=== PATIENT | female | born 1935 | race Caucasian/White ===

== ENCOUNTER 2020-04-24 17:48 | Emergency (ER) | payer MEDICARE ==
[~2020-04-24] VITALS: Wt 45.4 kg
[2020-04-24 18:44] LABS: BASO % 0.4 % (0.0-1.0); EOS % 0.8 % (1.0-4.0); HEMATOCRIT 25.9 % (37.0-47.0); LYMPH # 0.7 10*3/uL (1.3-4.4); LYMPH % 15.2 % (27.0-41.0); MEAN CELL VOLUME 88.1 fl (81.0-99.0); MEAN CORPUSCULAR HGB 28.6 pg (27.0-31.0); MEAN CORPUSCULAR HGB CONC 32.4 g/dl (33.0-37.0); MEAN PLATELET VOLUME 9.9 fl (9.6-12.3); MONO # 0.5 10*3/uL (0.1-1.0); MONO % 10.7 % (3.0-9.0); NEUT # 3.5 10*3/uL (2.3-7.9); NEUT % 72.5 % (47.0-73.0); PLATELET COUNT AUTOMATED 213 10*3/uL (130-400); RED BLOOD COUNT 2.94 10*6/uL (4.10-5.10); RED CELL DISTRI WIDTH 12.9 % (0-14.5); WHITE BLOOD COUNT 4.9 10*3/uL (4.8-10.8)
[2020-04-24 19:00] LABS: ALBUMIN 3.3 gm/dl (3.1-4.5); ALKALINE PHOSPHATASE 63 U/L (45-117); BUN 32 mg/dl (7-24); CHLORIDE 108 mmol/L (98-107); CREATININE 1.65 mg/dL (0.55-1.02); POTASSIUM 4.1 mmol/L (3.5-5.1); SGOT/AST 29 IU/L (3-35); SGPT/ALT 30 U/L (12-78); SODIUM 140 mmol/L (136-145); TOTAL PROTEIN 6.7 gm/dL (6.4-8.2)
[2020-04-24 19:06] LABS: ETHYL ALCOHOL < 3.0 mg/dl (<3); TROPONIN I < 0.015 ng/ml (<0.045)
[2020-04-24 20:36] LABS: BILIRUBIN NEGATIVE; BLOOD NEGATIVE (NEGATIVE); CLARITY CLEAR (CLEAR); COLOR YELLOW (YELLOW); GLUCOSE NEGATIVE; KETONE NEGATIVE; NITRITE NEGATIVE (NEGATIVE); UROBILINOGEN 0.2 E.U./dl (0.0-1.0)
[2020-04-24 20:37] LABS: LEUKO ESTERASE 2+ (NEGATIVE)
[2020-04-24 20:39] LABS: BACTERIA 2+; RBC 0-2 rbc/hpf (0-2); WBC 16-20 wbc/hpf (0-5)
[2020-04-24 20:40] LABS: URINE AMPHETAMINES < 1000 (1000ng/ml); URINE BARBITURATES < 200 (200ng/ml); URINE BENZODIAZEPINES > 200 (200ng/ml); URINE CANNABINOIDS (THC) < 50 (50ng/ml); URINE COCAINE < 300 (300ng/ml); URINE METHADONE < 300 (300ng/ml); URINE OPIATES < 300 (300ng/ml)
[2020-04-24 20:44] LABS: URINE PHENCYCLIDINE < 25 (25ng/ml)
[2020-04-24] MEDS ORDERED: AMITRIPTYLINE50 MG PO (23:36)
[2020-04-24] MEDS ORDERED: LISINOPRIL10 M1 PO (23:36)
[2020-04-24] MEDS ORDERED: PROTONIX20 MG PO (23:37)
[2020-04-24] MEDS ORDERED: DYAZIDE 37.5-21 EACH PO (23:38)
[2020-04-24] MEDS ORDERED: ATIVAN1 MG PO (23:39)
[2020-04-24] MEDS ORDERED: TRAZODONE50 MG PO (23:40)
[2020-04-24] MEDS ORDERED: FEROSUL325 MG PO (23:40)
[2020-04-24] MEDS ORDERED: NAPROXEN CR500 MG PO (23:40)
[2020-04-24] MEDS ORDERED: LEXAPRO5 M1 PO (23:41)
[2020-04-24] MEDS ORDERED: SENNA LAX8.6 M1 PO (23:42)
[2020-04-24] MEDS ORDERED: ATIVAN0.5 MG PO (23:43)
[2020-04-25] MEDS ORDERED: LEXAPRO5 M1 PO (00:39)
[2020-04-25] MEDS ORDERED: ATIVAN1 MG PO (00:41)
[2020-04-25] MEDS ORDERED: AMITRIPTYLINE50 MG PO (00:42)
== END 2020-04-25 00:55 | disposition home health service (06) ==
LOC: ED 17:48
PROVIDERS: Emergency Medicine
DX: R44.0 Auditory hallucinations (principal); R44.2 Other hallucinations; Z72.89 Other problems related to lifestyle

== ENCOUNTER 2020-04-24 23:30 | Inpatient (IN) | payer MEDICARE ==
[~2020-04-24] VITALS: Ht 152.4 cm; Wt 51.3 kg
[2020-04-24] MEDS ORDERED: AMITRIPTYLINE50 MG PO (23:36)
[2020-04-24] MEDS ORDERED: LISINOPRIL10 M1 PO (23:36)
[2020-04-24] MEDS ORDERED: PROTONIX20 MG PO (23:37)
[2020-04-24] MEDS ORDERED: DYAZIDE 37.5-21 EACH PO (23:38)
[2020-04-24] MEDS ORDERED: ATIVAN1 MG PO (23:39)
[2020-04-24] MEDS ORDERED: NAPROXEN CR500 MG PO (23:40)
[2020-04-24] MEDS ORDERED: FEROSUL325 MG PO (23:40)
[2020-04-24] MEDS ORDERED: TRAZODONE50 MG PO (23:40)
[2020-04-24] MEDS ORDERED: LEXAPRO5 M1 PO (23:41)
[2020-04-24] MEDS ORDERED: SENNA LAX8.6 M1 PO (23:42)
[2020-04-24] MEDS ORDERED: ATIVAN0.5 MG PO (23:43)
[2020-04-25 00:37] VITALS: BP 140/66
[2020-04-25] MEDS ORDERED: LEXAPRO5 M1 PO (00:39)
[2020-04-25] MEDS ORDERED: ATIVAN1 MG PO (00:41)
[2020-04-25] MEDS ORDERED: AMITRIPTYLINE50 MG PO (00:42)
--- NOTE | 2020-04-25 01:22 | NUR ---
DR MALAGON NOTIFIED OF ADMISSION. WILL SEE IN AM.
[2020-04-25 01:35] VITALS: BP 140/66
--- NOTE | 2020-04-25 01:42 | NUR ---
JAVON MAYFIELD a 85 year old F admitted via wheel chair from the EMERGENCY ROOM as a emergency 72 hr. hold admission. Arrived on unit at 0030 AM. ALLERGIES: MORPHINE. Vital signs are: [id number] 140/66. CLIENT IS PINK SLIPPED The client signed the following forms with stated understanding: Authorization For The Release of Medical Information, Clothing List, , Consent and Release Forms/Receipt of Rights, Acknowledgement of Advance Directive Information, Behavioral Health Consent Form, and Informed Consent of Medications. Ad[facility] the services [facility]. A search was conducted and hazardous articles were removed. Client was oriented to the unit. DANIEL HERNANDEZ
--- NOTE | 2020-04-25 01:43 | NUR ---
DURING INTERVIEW CLIENT STATES THE VOICES MADE HER MISS THE PLANE TO [facility], THEY MAKE FUN OF HER AND CALL HER NAMES. SHE CONTINUALLY HEARS MUSIC IN HER HEAD BUT TRIES TO BELIEVE THAT IT IS COMING FROM THE HOUSE BECAUSE HER SISTERS COME AND STAY WITH HER OVERNIGHT SOMETIMES BECAUSE THEIR HUSBANDS HAVE PASSED. STATES THE VOICES HAVE THREATENED TO SHOOT HER IF SHE EATS ANYTHING. STATES SHE TRIED TO STAND UP TO THEM AND WENT ONTO HER PORCH TO CONFRONT THEM AND THEY WERE GONE. UNABLE TO RATIONALIZE BETWEEN HALLUCINATIONS AND REALITY. SHE VERBALIZED THAT BEING HERE IS A LONG WAY FROM HOME BUT ESME BELIEVES THE MUSIC IN HER HEAD IS FROM HER HOUSE. GRANDSON TOLD HER SHE BETTER GET SOME HELP BEFORE SOMETHING HAPPENS TO HER. HAS BEEN TOLD THAT THE WIRES IN HER HEAD HAVE EITHER BEEN CUT IN 2 OR ARE TWISTED. FLAT AFFECT OF ACCEPTENCE THAT SHE CAN'T SEE OUR WORLD OUR WAY. EMOTIONAL SUPPORT PROVIDED. WILL MONITOR FOR CHANGES IN MOOD/BEHAVIOR AND Q 15 MINS AND PRN FOR SAFETY
--- NOTE | 2020-04-25 05:00 | NUR ---
DR MALAGON HERE TO SEE CLIENT. 24 HR chart check completed.
[2020-04-25 06:20] LABS: BASO % 0.5 % (0.0-1.0); EOS # 0.2 10*3/uL (0.0-0.4); EOS % 4.1 % (1.0-4.0); HEMATOCRIT 26.8 % (37.0-47.0); LYMPH # 1.1 10*3/uL (1.3-4.4); LYMPH % 24.6 % (27.0-41.0); MEAN CELL VOLUME 88.7 fl (81.0-99.0); MEAN CORPUSCULAR HGB 28.5 pg (27.0-31.0); MEAN CORPUSCULAR HGB CONC 32.1 g/dl (33.0-37.0); MEAN PLATELET VOLUME 10.2 fl (9.6-12.3); MONO # 0.5 10*3/uL (0.1-1.0); MONO % 10.8 % (3.0-9.0); NEUT # 2.6 10*3/uL (2.3-7.9); NEUT % 59.5 % (47.0-73.0); PLATELET COUNT AUTOMATED 223 10*3/uL (130-400); RED BLOOD COUNT 3.02 10*6/uL (4.10-5.10); RED CELL DISTRI WIDTH 13.2 % (0-14.5); WHITE BLOOD COUNT 4.4 10*3/uL (4.8-10.8)
--- NOTE | 2020-04-25 06:36 | NUR ---
INCREASED CONFUSION AND HALLUCINATIONS. ROCKING IN BED SAYING GOD HAS TOLD HER WHAT TO SAY, BUT SHE KNOWS THAT HER FRIEND CINDY IS PUTTING MORPHINE IN ALL THE MEDICATIONS SO SHE IS NOT GOING TO TAKE ANY MEDICATIONS. WHEN I SAID THAT WAS HER RIGHT BUT THAT MEDICATIONS ARE SAFE AND NO ONE CAN POISON THEM OR ADD MORPHINE, SHE ROLLED HER EYES AND SAID OH HOW THE ATTITUDES HAVE CHANGED, YOU WILL SEE WHEN THEY COME AND SHOOT ME. UNABLE TO REDIRECT TO REALITY. WILL CONTINUE TO MONITOR
[2020-04-25 06:37] LABS: CREATININE 1.44 mg/dL (0.55-1.02); POTASSIUM 3.9 mmol/L (3.5-5.1); TOTAL PROTEIN 6.5 gm/dL (6.4-8.2)
[2020-04-25 06:45] LABS: THYROID STIM HORMONE (HS) 2.99 uIU/ml (0.358-4.75)
[2020-04-25 07:46] VITALS: BP 124/88
[2020-04-25 08:04] LABS: VITAMIN D, 25-HYDROXY 33.4 ng/mL (30-100)
--- NOTE | 2020-04-25 09:00 | NUR ---
Treatment Plan meeting was held this a.m. with RUSSEL Lester, RN, AT, SEJAL-S and Sterile Supply Technician. Plan for discharge Next Week. Pt. will return home at discharge.
--- NOTE | 2020-04-25 09:39 | NUR ---
P: DEPRESSED MOOD, FEELINGS OF HOPELESSNESS/HELPLESSNESS. AUDITORY HALLUCINATIONS, PARANOIA. I: ONE ON ONE, SPACE PROVIDED NEEDED. R: EFFECTIVE. PATIENT IS ALERT TO PERSON, PLACE, TIME AND SITUATION; ABLE TO VOICE NEEDS. MOOD IS DEPRESSED. PATIENT IS PREOCCUPIED WITH THOUGHTS OF HER DOG RUNNING AWAY. DENIES SUICIDAL IDEATION, DENIES HOMICIDAL IDEATION. PATIENT IS TERAFUL. EXPERIENCING AUDITORY HALLUCINATIONS "THEY SAID THEY ARE GOING TO TAKE ME TO A ROOM AND WATCH ME AND I'M BRUTAL AND DANGEROUS". PATIENT IS EXPERIENCING PARANOIA, SHE BELIEVES PEOPLE ARE TALKING ABOUT HER AND CALLING HER "CRAZY" AND BELIEVES THAT PEOPLE ARE GIVING HER MORPHINE. MEDICATION COMPLIANT WITH EDUCATION. Q 15 MINUTE SAFETY CHECKS MAINTAINED. INDEPENDENT WITH ACTIVITIES OF DAILY LIVING, CONTINENT OF BOWEL AND BLADDER. SET UP FOR MEALS. AMBULATORY WITH STEADY GAIT. RESTLESS AT THIS TIME. INTAKES ARE INADEQUATE WITH ADEQUATE FLUIDS. REFUSED TO ATTEND GROUP THIS MORNING. P: CONTINUE TO MONITOR FOR MOOD, HALLUCINATIONS AND DELUSIONS. PROVIDE ONE ON ONE FOR EMOTIONAL SUPPORT, PROVIDE SPACE NEEDED, ENCOURAGE TO PARTICIPATE IN GROUP SESSION AND SOCIALIZE WITH OTHERS.
--- NOTE | 2020-04-25 10:20 | NUR ---
Occupational Therapy evaluation completed on three with full evaluation to follow. Recommend occupational therapy per plan of care and home with increased family assist with HH upon discharge. Thank you for this referral. Zaina Sotomayor OTR/L
--- NOTE | 2020-04-25 11:10 | NUR ---
DR DALEY ON UNIT TO ASSESS PT, UPDATE PROVIDED.
--- NOTE | 2020-04-25 11:28 | NUR ---
PHYSICAL THERAPY Physical Therapy evaluation completed in [facility] with full evaluation to follow. Recommend physical therapy per plan of care and home w family support as needed upon discharge. Thank you for this referral. Loy Grijalva SPT Marixa Gonzalez PT
--- NOTE | 2020-04-25 11:43 | NUR ---
AM GROUP PT WAS AMBULATING THE HALLWAY AT THE START OF GROUP AND APPEARED DISTURBED. PT WAS GREETED AND ASKED IF EVERYTHING WAS OKAY? PT STATED, "NO, I EVERYTIME I GO TO MY ROOM I HEAR THEM TALKING ABOUT ME. THEY SAY THAT I A DANGEROUS AND VISCIOUS. I AM NOT A BAD PERSON!" PT WAS DISTRACTED WITH QUESTIONS ABOUT HER LIFE AND ENCOURAGED TO ATTEND GROUP THERAPY. PT DECLINED AND STATED, "NO, I JUST WANT TO LAY DOWN. I SHOULDN'T BE HERE, THEY ARE LYING ABOUT ME, I'M NOT A BAD PERSON AND I'M NOT CRAZY." "I REALLY MISS MY DOG GERALDINE, I NEED TO GET HOME TO HIM." PT RETURNED TO HER ROOM AND WAS LATER OBSERVED TO BE LOOKING THROUGH THE CLEAN ROOM WINDOW. I WAS RETRIEVING WARM BLANKET FOR PEERS AND ASKED PT WHAT SHE WAS DOING? PT STATED, "THEY ARE TALKING ABOUT ME, I CAN HEAR THEM, THEY ARE SAYING BAD THINGS ABOUT ME" PT WAS REFERING TO THE VICE PRESIDENT BUSINESS DEVELOPMENT AND FLOAT NURSE WHO WERE IN THE CLEAN ROOM TALKING. I OPENED THE DOOR FOR THE PT, ASSURRED HER DID THE NURSE AND VICE PRESIDENT BUSINESS DEVELOPMENT THAT THEY WERE NOT TALKING ABOUT HER AND OFFERED PT A WARM BLANKET WHICH SHE ACCEPTED. PT WAS AGAIN ENCOURAGED TO ATTEND GROUP THERAPY BUT DECLINED AND RETURNED TO HER ROOM.
--- NOTE | 2020-04-25 12:16 | NUR ---
Left voicemail messages for pt's daughter Dorota Spear requesting a return call.
--- NOTE | 2020-04-25 14:08 | NUR ---
Pt came to nurse's station asking when she would be seeing the doctor. Encouraged pt to attend group activity or to sit in activity room with others. Pt voiced that she did not want to do that. Pt did continue to stand near nurse's station and reminisce about her and their marriage of 67 years to this underwriter solicitation director. Pt was pleasant with no delusions or paranoia being voiced. Pt then returned to her room.
--- NOTE | 2020-04-25 14:10 | NUR ---
Spoke to [facility] precert line. Pending auth # [id number]. Awaiting clinical call from insurance case manager at [facility].
--- NOTE | 2020-04-25 15:09 | NUR ---
IP 7 days ethan per Dieter at [facility]. LCD and NRD 04/30. Ref # [id number]. CCR will be with [facility] [phone].
--- NOTE | 2020-04-25 15:43 | NUR ---
PM GROUP/LEISURE INTERESTS PT DID NOT ATTEND AFTERNOON GROUP THERAPY. PT CHOSE TO STAY IN BED AND NAP.
[2020-04-25 20:00] VITALS: BP 139/62
--- NOTE | 2020-04-25 23:59 | NUR ---
P-ISOLATIVE, WITHDRAWN I-REDIRECTION WITH 1:1 THERAPEUTIC INTERVENTIONS AND PRESENT REALITY. EDUCATE AND ENCOURAGE MEDICATION COMPLIANCE R-PATIENT MEDICATION COMPLIANT AT HS. PATIENT REFUSED NOURISHMENT AT HS BUT PROVIDED FLUIDS. PATIENT ISOLATIVE IN ROOM THROUGHOUT SHIFT. PATIENT COOPERATIVE WITH NURSING STAFF. PATIENT WITH NO HALLUCINATIONS OR DELUSIONS. PATIENT WITH NO HOMICIDAL OR SUICIDAL IDEATIONS. P-CONTINUE TO ENCOURAGE MEDICATION COMPLIANCE, CONTINUE TO PRESENT REALITY, ENCOURAGE GROUP THERAPY WHILE AWAKE
--- NOTE | 2020-04-26 06:19 | NUR ---
PATIENT SLEPT 8 HOURS OF UNINTERRUPTED SLEEP THROUGHOUT SHIFT. Q 15 MINUTE CHECKS MAINTAINED. 24 HR chart check completed.
[2020-04-26 07:25] VITALS: BP 139/73
--- NOTE | 2020-04-26 15:00 | NUR ---
P: PATIENT IS TEARFUL, COMPLAINING OF NIGHTMARES, AND EXPERIENCING AUDITORY HALLUCINATIONS. I: ONE ON ONE, SPACE PROVIDED. R: EFFECTIVE. PATIENT IS ALERT TO PERSON AND TIME. PATIENT IS ABLE TO VOICE NEEDS. PATIENT IS ANXIOUS AND DEPRESSED. PATIENT IS CONFUSED UPON WAKING FROM A NAP, SHE IS STATING SHE IS "NOT SURE WHERE SHE IS". PATIENT IS PREOCCUPIED WITH THE NIGHTMARES SHE STATES SHE HAS BEEN HAVING, SHE STATES "I HAD A BAD DREAM BETWEEN THE DEVIL AND THE ANGELS AND MY SISTERS WHERE THERE". PATIENT ALSO STATES THAT "MY DAUGHTER FOUND ME ON THE FLOOR AND WHEN SHE ASKED ME WHY IM ON THE FLOOR AND WHAT HAPPENED, I TOLD HER I JUST GOT BACK FROM [facility]." PATIENT IS EXTREMELY TEARFUL, AND WAS SO UPSET THAT SHE REFUSED HER BREAKFAST. PATIENT IS ALSO RESPONDING TO INTERNAL STIMULI, SHE IS TALKING TO HERSELF. PATIENT DENIES SUICIDAL AND HOMICIDAL IDEATION. MEDICATION COMPLIANT WITH EDUCATION. Q 15 MINUTE SAFETY CHECKS MAINTAINED. INDEPENDENT WITH ACTIVITIES OF DAILY LIVING, CONTINENT OF BOWEL AND BLADDER. LAST BM 04/25. SET UP FOR MEALS. INTAKES ARE FAIR WITH ADEQUATE FLUID INTAKE. AMBULATORY WITH STEADY GAIT. PATIENT IS ISOLATIVE AND WITHDRAWN. P: CONTINUE TO MONITOR FOR HALLUCINATIONS, DELUSIONS, BEHAVIORS AND MOOD. PROVIDE ONE ON ONE FOR EMOTIONAL SUPPORT, PROVIDE SPACE NEEDED AND ENCOURAGE PATIENT TO SOCIALIZE WITH OTHERS.
--- NOTE | 2020-04-26 16:50 | NUR ---
THIS NURSE WENT TO LET PATIENT KNOW DINNER WAS HERE AND FOUND PATIENT SITTING IN A CHAIR IN HER ROOM WITH HER HANDS ON HER FACE LOOKING EXTREMELY NERVOUS. WHEN THIS NURSE ASKED HER WHAT WAS WRONG THE PATIENT REPLIED WITH "I HAVE TO BE IN COURT AT 6 TONIGHT IN [place]" THIS NURSE TRIED TO GET PATIENT TO ELABORATE ON WHY SHE THOUGHT SHE HAD COURT, BUT I NEVER GOT AN ACTUAL ANSWER, SHE WAS JUST VERY ADAMANT THAT SHE WAS DUE IN COURT. THIS NURSE REASSURED PATIENT SHE WAS EXACTLY WHERE SHE WAS SUPPOSED TO BE AND WAS NOT DUE IN COURT TONIGHT IN [place].
[2020-04-26 20:00] VITALS: BP 131/84
[2020-04-26 20:21] VITALS: BP 131/84
--- NOTE | 2020-04-27 01:13 | NUR ---
P-ISOLATIVE, WITHDRAWN I-REDIRECTION WITH 1:1 THERAPEUTIC INTERVENTIONS AND PRESENT REALITY. EDUCATE AND ENCOURAGE MEDICATION COMPLIANCE R-PATIENT MEDICATION COMPLIANT AT HS. PATIENT PROVIDED NOURISHMENT AND FLUIDS AT HS. PATIENT ISOLATIVE IN ROOM THROUGHOUT SHIFT. PATIENT COOPERATIVE WITH NURSING STAFF. PATIENT STATING "I HAD A DREAM LAST NIGHT AND IT WAS ABOUT HEAVEN". THIS NURSE ASKED PATIENT IF SHE HAD ANY NIGHTMARES. PATIENT STATING "NO, JUST A DREAM ABOUT HEAVEN". PATIENT WITH NO HALLUCINATIONS OR DELUSIONS. PATIENT WITH NO HOMICIDAL OR SUICIDAL IDEATIONS. P-CONTINUE TO ENCOURAGE MEDICATION COMPLIANCE, CONTINUE TO PRESENT REALITY, ENCOURAGE GROUP THERAPY WHILE AWAKE
--- NOTE | 2020-04-27 06:32 | NUR ---
PATIENT SLEPT 8 HOURS OF UNINTERRUPTED SLEEP THROUGHOUT SHIFT. Q 15 MINUTE CHECKS MAINTAINED. 24 HR chart check completed.
[2020-04-27 07:22] VITALS: BP 111/82
--- NOTE | 2020-04-27 08:53 | NUR ---
PATIENT GOT UP FOR BREAKFAST AND WAS VERY TEARFUL, THIS NURSE ASKED WHAT WAS THE MATTER AND PATIENT STATED "I HAD A GOOD DREAM, IM GOING HOME TO [facility]" THEN PROCEEDED TO SAY "THE CHARGES ARE DROPPED AND I AM BEING TAKEN TO THE FOURTH FLOOR WHERE NO ONE KNOWS ME AND THEN THEY ARE TAKING ME TO [facility]" WHEN I ASKED PATIENT WHAT CHARGES SHE HAD AGAINST HER SHE STATED "IT WAS FOR SOMETHING ON FACEBOOK" PATIENT ALSO BELIEVES THAT SHE IS BEING GIVEN MORPHINE. THIS NURSE REASSURED AND REORIENTED PATIENT.
--- NOTE | 2020-04-27 11:00 | NUR ---
DR AYOUB ON UNIT TO ASSESS PATIENT, UPDATE PROVIDED.
--- NOTE | 2020-04-27 14:19 | NUR ---
PT IS ALERT AND ORIENTED X3 WITH CONFUSION NOTED AT TIMES. STABLE MOOD TODAY; HOWEVER, PT STARTED HER MORNING OUT TEARFUL WITH THE DR. INTERACTIVE AND CALM WITH STAFF. DENIES HALLUCINATIONS AND DELUSIONS. DENIES SI/HI. MEDICATION COMPLIANT WITHOUT DIFFICULTIES. MEDICATION EDUCATION PROVIDED AND PT VERBALIZED UNDERSTANDING. 1:1 PROVIDED FOR THERAPEUTIC COMMUNICATION. BEHAVIORS MONITORED WITH Q15 MINUTE SAFETY CHECKS. WILL CONTINUE TO PROVIDE 1:1 AND MONITOR BEHAVIORS.
--- NOTE | 2020-04-27 14:47 | NUR ---
DR AYOUB ON THE UNIT TO ASSESS PT.
[2020-04-27 20:00] VITALS: BP 134/57
--- NOTE | 2020-04-27 23:05 | NUR ---
P-ISOLATIVE, WITHDRAWN, CONFUSION I-REDIRECTION WITH 1:1 THERAPEUTIC INTERVENTIONS AND PRESENT REALITY. EDUCATE AND ENCOURAGE MEDICATION COMPLIANCE R-PATIENT MEDICATION COMPLIANT AT HS. PATIENT REFUSED NOURISHMENT AT HS BUT WAS PROVIDED FLUIDS AT HS. PATIENT ISOLATIVE IN ROOM THROUGHOUT SHIFT. PATIENT COOPERATIVE WITH NURSING STAFF. PATIENT STATING "I THINK I'M SUPPOSE TO LEAVE TOMORROW AT 8AM TO GO TO [facility]". THIS NURSE EXPLAINED TO PATIENT THAT TRANSPORTATION HAS NOT BEEN SET UP FOR DISCHARGE AND THAT THIS NURSE WAS NOT AWARE OF PATIENT BEING DISCHARGED IN THE AM. PATIENT THANKED THIS NURSE AND WENT INTO THE DINING AREA. PATIENT WITH NO HALLUCINATIONS OR DELUSIONS. PATIENT WITH NO HOMICIDAL OR SUICIDAL IDEATIONS. P-CONTINUE TO ENCOURAGE MEDICATION COMPLIANCE, CONTINUE TO PRESENT REALITY, ENCOURAGE GROUP THERAPY WHILE AWAKE
--- NOTE | 2020-04-28 06:39 | NUR ---
PATIENT SLEPT 8 HOURS OF UNINTERRUPTED SLEEP THROUGHOUT SHIFT. Q 15 MINUTE CHECKS MAINTAINED. 24 HR chart check completed.
[2020-04-28 06:44] VITALS: BP 129/56
--- NOTE | 2020-04-28 09:11 | NUR ---
PATIENT LAYING IN BED CRYING, CHANTING "GOD IS COMING" AND "I WANT TO GO HOME" PATIENT STATES SHE WAS IN [place] AND AT [facility] HOU[facility], ALSO SAID "I CROSSED THE BRIDGE AND CLIMBED 120 STEPS TO GO INTO [facility] AND EVERYONE WAS THERE CHEERING ME ON, MY MOM, MY DAD, MY FAMILY, AND CELESTINO AND I DIDN'T SEE GRAYSON BUT I DID HEAR HIM TELL ME I WILL SEE HIM LATER AND GOD ALSO TOLD ME I WILL SEE HIME LATER". PATIENT WAS VERY UPSET, SHE WAS VERY EMOTIONAL AND WANTS TO GO TO [facility] TO SEE ALL OF HER LOVED ONES. WILL CONTINUE TO MONITOR PATIENT.
[2020-04-28 09:30] LABS: BASO % 0.5 % (0.0-1.0); EOS # 0.2 10*3/uL (0.0-0.4); EOS % 2.3 % (1.0-4.0); HEMATOCRIT 28.8 % (37.0-47.0); LYMPH # 1.2 10*3/uL (1.3-4.4); LYMPH % 18.1 % (27.0-41.0); MEAN CELL VOLUME 88.1 fl (81.0-99.0); MEAN CORPUSCULAR HGB 28.4 pg (27.0-31.0); MEAN CORPUSCULAR HGB CONC 32.3 g/dl (33.0-37.0); MEAN PLATELET VOLUME 9.8 fl (9.6-12.3); MONO # 0.5 10*3/uL (0.1-1.0); MONO % 8.4 % (3.0-9.0); NEUT # 4.5 10*3/uL (2.3-7.9); NEUT % 70.2 % (47.0-73.0); PLATELET COUNT AUTOMATED 283 10*3/uL (130-400); RED BLOOD COUNT 3.27 10*6/uL (4.10-5.10); RED CELL DISTRI WIDTH 13.2 % (0-14.5); WHITE BLOOD COUNT 6.4 10*3/uL (4.8-10.8)
[2020-04-28 09:50] LABS: ALBUMIN 3.1 gm/dl (3.1-4.5); CREATININE 1.35 mg/dL (0.55-1.02); TOTAL PROTEIN 6.7 gm/dL (6.4-8.2)
--- NOTE | 2020-04-28 11:10 | NUR ---
DR AYOUB ON UNIT TO ASSESS PATIENT, UPDATE GIVEN.
--- NOTE | 2020-04-28 12:38 | NUR ---
P: PATIENT IS ANXIOUS, DEPRESSED, PREOCCUPIED, ISOLATIVE/WITHDRAWN. I: ONE ON ONE, SPACE PROVIDED NEEDED. R: EFFECTIVE. PATIENT IS ALERT TO PERSON, PLACE, TIME AND SITUATION. PATIENT IS ABLE TO VOICE NEEDS. MOOD IS ANXIOUS AND DEPRESSED. PATIENT TALKS A LOT ABOUT HER WHO IN AUGUST. PATIENT IS TEARFUL. PATIENT DENIES SUICIDAL AND HOMICIDAL IDEATION. PATIENT IS PREOCCUPIED WITH THE THOUGHTS OF HEARING HER LATE HUSBANDS MUSIC, SHE SAID THAT HE PLAYED THE GUITAR AND SHE VIVIDLY HEARS IT. PATIENT IS ISOLATIVE AND WITHDRAWN. PATIENT STATES SHE IS AWARE OF THE ROUGH MORNINGS SHE HAS ALONG WITH THE DREAMS SHE HAS ABOUT HEAVEN. MEDICATION COMPLIANT WITH EDUCATION. Q 15 MINUTE SAFETY CHECK MAINTAINED. INDEPENDENT WITH ACTIVITIES OF DAILY LIVING. CONTINENT OF BOWEL AND BLADDER. SET UP FOR MEALS, PATIENT DID NOT GET UP FOR BREAKFAST THIS MORNING. INTAKES ARE FAIR WITH ADEQUATE FLUIDS. AMBULATORY WITH STEADY GAIT. P: CONTINUE TO MONITOR FOR HALLUCINATIONS AND MOOD. PROVIDED ONE ON ONE FOR EMOTIONCAL SUPPORT, PROVIDE SPACE NEEDED, ENCOURAGE TO PARTICIPATE IN GROUP SESSION AND SOCIALIZE WITH OTHERS.
[2020-04-28 19:43] VITALS: BP 119/52
--- NOTE | 2020-04-28 20:30 | NUR ---
ISOLATIVE TO RICHARD EXCEPT FOR SNACK. TALKED ON PHONE. INFORMED NURSE SHE HAD A BAD NIGHT AND DAY AND STILL FEELS ANXIOUS SO SHE HOLDS ONTO THE RAILS TO WALK. STATES "I AM WALKING PRETTY GOOD". NOT VERBALIZING WHAT ACTUALLY HAPPENED LAST NIGHT BUT EMOTIONAL SUPPORT FOR TONIGHT TO BE A BETTER NIGHT. MEDICATION COMPLIANT AFTER REVIEWING THEM. WILL MONITOR FOR CHANGES IN BEHAVIOR/MOOD AND Q 15 MINS AND PRN FOR SAFETY
--- NOTE | 2020-04-28 21:38 | NUR ---
REPEAT URINE SENT PER ORDERS
[2020-04-28 21:47] LABS: BILIRUBIN NEGATIVE; BLOOD NEGATIVE (NEGATIVE); CLARITY CLEAR (CLEAR); COLOR YELLOW (YELLOW); GLUCOSE NEGATIVE; KETONE NEGATIVE
[2020-04-28 21:48] LABS: LEUKO ESTERASE 1+ (NEGATIVE); NITRITE NEGATIVE (NEGATIVE); PH 5.5 (4.5-8.0); UROBILINOGEN 0.2 E.U./dl (0.0-1.0)
[2020-04-28 21:51] LABS: BACTERIA TRACE; EPITHELIAL CELLS 0-2; WBC 21-30 wbc/hpf (0-5)
--- NOTE | 2020-04-29 02:23 | NUR ---
24 HR chart check completed.
--- NOTE | 2020-04-29 06:17 | NUR ---
SLEPT WELL PAST 2245PM
--- NOTE | 2020-04-29 07:30 | NUR ---
PHYSICAL THERAPY Patient seen this am for therapy visit and was just awakening supine in bed upon therapist arrival. Patient identified by name / and was joined by OT executive administrative assistant for observation this session. Patient reports no new c/o's at this time and transfers supine to sit EOB with CGA x 1. Patient completed sit to stand SBA and ambulated ad arnaud in hallway, 50'x 1 to window, no AD, SBA, taking a brief standing rest break to look out window. Patient also completed standing eyes open / closed balance ex and performed several 180 degree turns each direction, SBA, demonstratng no LOB during each ex. Patient ambulated additional 130'x 1, SBA, demonstrating slow, cautious gait pattern, however did have one mild "drifting" episode to L side upon return to activity room chair at table. Patient appeared to demonstrate decreased focus on task during drifting episode and remained in chair at table awaiting breakfast, under [facility] staff Supervision. Will continue per POC as tolerated, total treatment time 18 minutes. Eulogio Foreman, FACILITY ASSISTANT
--- NOTE | 2020-04-29 07:35 | NUR ---
OT NOTE Prior to arriving therapy notified U and talked to nurse gilliland for permission to treat Pt. Pt laying supine in bed agreeable to 10 minute OT session. Identified by name and date of with no complaints to date. Transfer SUPINE to EOB SBA. Pt was able to bend at waist at EOB to fix hospital socks. balance good-. Sit-stand from elevated bed CGA for safety. Functional mobility from EOB to bathroom CGA for saftey. Transferring on and off commode CGA with use of grab bar. Functional mobility from bathroom to hallway window CGA for saftey. Pt was able to maintain good- while standing unsupported at window. Functional mobility from hallway to dining romero CGA for safety. While walking pt became upset and began to cry stating "i wanna go home" pt was easily redirected. Functional mobility to dining romero table CGA, however pt became unsteady due to decreased focus requiring Robbie to correct. Pt left in dining romero at table with U aide present. Continue d/c recommended home. AFSHAN Hauser/LAKE Marte/Shelby
[2020-04-29 08:00] VITALS: BP 116/55
--- NOTE | 2020-04-29 08:30 | NUR ---
Treatment Plan meeting was held this a.m. with Dr. Cox via telephone, RUSSEL Lester RN, AT and Data Base Design Analyst in attendance. Pt. will return home at discharge. Plan for discharge at the end of the week.
--- NOTE | 2020-04-29 11:22 | NUR ---
DR AYOUB ON UNIT TO ASSESS PATIENT, UPDATE PROVIDED.
--- NOTE | 2020-04-29 11:58 | NUR ---
AM GROUP PT WAS SEATED IN A CHAIR IN HER ROOM AND WAS ENCOURAGED TO ATTEND MORNING GROUP THERAPY. PT STATED THAT SHE WAS FINE, DIDN'T NEED ANYTHING AND DID NOT WANT TO ATTEND. PT DID NOT ATTEND MORNING GROUP BUT DID COME IN FOR LUNCH.
--- NOTE | 2020-04-29 15:46 | NUR ---
PM GROUP PT DID NOT ATTEND AFTERNOON GROUP THERAPY. PT WAS IN BED NAPPING.
[2020-04-29 19:37] VITALS: BP 133/77
--- NOTE | 2020-04-29 21:06 | NUR ---
SPOKE WITH SON AND JENI WHO HAD JUST GOTTON OFF PHONE WITH CLIENT. SHE TOLD THEM SHE HAD COVID AND WAS BEING ISOLATED. REASSURED THEM THIS IS NOT TRUE IN FACT HER URINE CAME BACK CLEAN AND THE ONLY ISOLATION WAS WHAT SHE PUTS HERSELF IN. REINFORCED WE TRY CONTINUALLY TO GET HER OUT OF HER ROOM BUT SHE MAINLY ONLY COMES OUT FOR MEALS. DIL STATES CLIENT SOUNDED DEPRESSED BUT WAS TALKING ABOUT MONEY IN HER ACCOUNT TO PAY HER BILLS. ALL QUESTIONS ANSWERED AND EMOTIONAL SUPPORT PROVIDED I THEN WENT TO CLIENTS ROOM AND REASSURED HER THAT SHE DOES NOT HAVE COVID AND SHE CAN COME AND PARTICIPATE IN GROUPS AND WATCH TV. CLIENT CLAPPED HANDS AND SAID OH GOOD. FINISHED TAKING HER MEDICATIONS, PM CARE DONE AND WENT TO BED.
--- NOTE | 2020-04-29 22:00 | NUR ---
REMAINS ON BACK. REFUSES TURN ASSISTANCE OR TO TURN. STATES SHE LIKES ON HER BACK. ENCOURAGED AT LEAST SMALL CHANGES. VERBALIZED UNDERSTANDING
--- NOTE | 2020-04-30 02:43 | NUR ---
24 HR chart check completed.
--- NOTE | 2020-04-30 05:45 | NUR ---
SLEPT GOOD PAST 2245PM. UP A COUPLE TIMES TO GO TO BATHROOM
--- NOTE | 2020-04-30 07:20 | NUR ---
PHYSICAL THERAPY Patient seen this am for therapy visit and was sitting in bedroom chair with OT assistant director of plant operations present upon therapist arrival. Patient identified by name / and was very pleasant this morning, voicing no new c/o's. Patient was Independent this session with all transfers and ambulates without AD, ad arnaud in hallway, 100'x 2, Supervision. Patient tolerated only 1 second single leg stance each side prior to LOB and able to change gait velocity upon command without LOB. Patient returned to activity room chair and remained under [facility] staff Supervision awaiting breakfast. Will continue per POC as tolerated, total treatment time 18 minutes. Eulogio Foreman, PIECE GOODS CLERK
--- NOTE | 2020-04-30 07:30 | NUR ---
OT NOTE Upon arrival therapist called [facility] and talked to nurse Redman to get permission to treat pt. Pt was up in bathroom standing at sink brushing hair. Pt was agreeable to 12 minute OT session. Identified by name and date of with no complaints to date. While standing at sink side pt was unsupported with good- standing balance. Functional mobility from bathroom to standard chair CGA. Pt was able to dileep hospital socks while seated in chair with SBA. Functional mobility from room to hallway window CGA. while standing at window pt had good- standing balance unsupported. Hallway to chair in dining romero CGA with occasional Robbie due to bouts of unsteady stance . Pt performed BUE exercises with towel in chair at moderate resistance all planes X10. Pt was left in dining romero with [facility] aide present. Continue d/c recommended home. AFSHAN Hauser/LAKE Marte/Shelby
[2020-04-30 07:31] VITALS: BP 117/56
--- NOTE | 2020-04-30 08:30 | NUR ---
Treatment Plan meeting was held this a.m. with Dr. Cox via telephone, RUSSEL Lester, RN, AT, CROSSTIE INSPECTOR-S and Laminator Hand. Plan for discharge Tuesday. Pt. will return home at discharge.
--- NOTE | 2020-04-30 09:57 | NUR ---
DR. SPICER ON UNIT TO ASSESS PATIENT.
--- NOTE | 2020-04-30 11:14 | NUR ---
AM GROUP PT DID NOT ATTEND MORNING GROUP THERAPY. PT WAS IN BED RESTING.
--- NOTE | 2020-04-30 12:46 | NUR ---
P: ISOLATIVE TO ROOM, ALERT SITTING IN CHAIR. DEPRESSED MOOD I: ONE ON ONE, REDIRECTION/ORIENTATION, AND ENCOURAGED PATIENT TO ATTEND GROUP AND INTERACTIVE WITH STAFF AND OTHER PATIENTS. R: INEFFECTIVE. PATEINT INTERACTIVE WITH STAFF, DID NOT PARTICIPATE IN GROUP SESSION. COMES TO DINING ROOM FOR MEALS AND TALKS WITH OTHER FEMALE PATIENT. PATIENT IS ALERT TO PERSON, PLACE, TIME AND SITUATION WITH INTERMITTANT CONFUSION. MOOD IS DEPRESSED. DENIES ANY HALLUCINATIONS, DELUSIONS, HI/SI OR PAIN. MEDICATION COMPLIANT WITH EDUCATION PROVIDED. Q 15 MINUTE SAFETY CHECKS. AMBULATORY WITH STEADY GAIT. PARTICIPATES IN THERAPY SESSION THIS MORNING. SET UP WITH ACTIVITIES OF DAILY LIVING, CONTINENT OF BOWEL AND BLADDER. SET UP FOR MEALS, INTAKES ARE GOOD WITH ADEQUATE FLUIDS. P: CONTINUE TO MONITOR FOR HALLUCINATIONS, HEARING MUSIC OR VOICED THOUGHTS TO STARVE SELF. PROVIDE ONE ON ONE FOR EMOTIONAL SUPPORT, REDIRECTION/ORIENTATION PROVIDED.
--- NOTE | 2020-04-30 13:28 | NUR ---
IP 2 additional days approved per Ana Maria at [facility], LCD/NRD 05/02. Ref # [id number]
--- NOTE | 2020-04-30 15:31 | NUR ---
Shift chart check completed.
--- NOTE | 2020-04-30 19:35 | NUR ---
PATIENT ALERT AND ORIENTED X4, CONSENT FOR VOLUNTARY ADMISSION AND HOSPITALIZATION FORMED SIGNED AT THIS TIME WITH VERBAL UNDERSTANDING.
[2020-04-30 19:48] VITALS: BP 150/59
[2020-04-30 20:00] VITALS: BP 134/66
--- NOTE | 2020-04-30 23:40 | NUR ---
PATIENT WITH NO ADVERSE BEHAVIORS. ALERT AND ORIENTED X4, CALM, COOPERATIVE, AND PLEASANT. PT ISOLATIVE TO ROOM AND BED SINCE BEGINNING OF SHIFT, ONLY COMING DOWN TO DINING ROOM FOR SNACK. PT MEDICATION COMPLIANT WITHOUT DIFFICULTY AFTER REVIEW. PT DENIES SI/HI, HALLUCINATIONS, OR PAIN. NO PARANOIA/DELUSIONS NOTED. PT AMBULATORY WITH A STEADY GAIT, INDEPENDENT IN ADLS, CONTINENT OF BOWEL AND BLADDER. NO DISTRESS NOTED. PLAN IS TO CONTINUE OT MONITOR MOOD AND BEHAVIOR, MAINTAIN Q 15 MIN CHECKS AND PRN FOR SAFETY.
--- NOTE | 2020-05-01 06:31 | NUR ---
PATIENT SLEPT APPROX 5 HOURS INTERRUPTED THIS SHIFT. PARANOID THOUGHT PROCESS NOTED THIS AM, BELIEVES STAFF IS GIVING ALL THE PATIENTS MORPHINE. PT EASILY REORIENTED/REDIRECTED WITH VERBAL UNDERSTANDING. NO DISTRESS NOTED.
--- NOTE | 2020-05-01 06:40 | NUR ---
24 HOUR CHART CHECK COMPLETED.
--- NOTE | 2020-05-01 07:05 | NUR ---
PHYSICAL THERAPY Patient seen this am for therapy visit and was sitting up on EOB upon therapist arrival. Patient identified by name / and was joined by OT clinical lab assistant for observation this session. Patient reports no new c/o's at this time and was very pleasant this morning, Independent with all transfers. Patient ambulated without AD, ad arnaud in hallway, > 200'x 1, CGA, while demonstrating very slow, cautious gait pattern, secondary to "sluggish" behaviour. Patient completed all gait ex without LOB and returned to activity room chair at table awaiting breakfast, under [facility] staff Supervision. Will continue per POC as tolerated, total treatment time 14 minutes. Eulogio Foreman, STORE PROMOTER
--- NOTE | 2020-05-01 07:17 | NUR ---
OT NOTE Prior to OT session, therapist called [facility] to [facility] at 0650 and talked to nurse Shannen to get permission to treat pt. Pt was sitting up in chair in room upon arrival, agreeable to 18 minute OT session. Identified by name and date of with complaints of being tired. Sit-stand from chair CGA. Functional mobility from room to hallway window CGA. Standing balance at window was good-. Functional mobility from window to room CGA. Pts balance was challenged by weight shifting in all planes unsupported with SBA. balance good-. Functional mobility from hallway to bathroom CGA. Transferring on and off commode distant supervision. clothing and hygiene management were both distant supervision. Pt was able to stand unsupported sink side to wash hands at distant supervision.balance good-. Functional mobility from bathroom to dining romero CGA. Pt was left in chair at dining romero with [facility] aide present. Continue d/c recommended home. AFSHAN Hauser/LAKE Marte/Shelby
[2020-05-01 07:28] VITALS: BP 145/74
--- NOTE | 2020-05-01 08:33 | NUR ---
SPOKE WITH DR MARLEY RE: PT UA RESULTS SHOWING E.COLI, PER HE WILL TAKE A LOOK. NO FURTHER ORDERS AT THIS TIME.
--- NOTE | 2020-05-01 09:00 | NUR ---
Treatment Plan meeting was held this a.m. with Dr. Cox RN, IMPROVEMENT RN-S and Flame Cutting Machine Operator Helper in attendance. Plan for discharge Next Week. Dr. Cox making Medication Adjustments.
--- NOTE | 2020-05-01 18:54 | NUR ---
P: ISOLATIVE TO ROOM, ALERT SITTING IN CHAIR. PARANOID AT TIMES AND TALKING TO SELF IN ROOM. I: ONE ON ONE, REDIRECTION/ORIENTATION, AND ENCOURAGED PATIENT TO ATTEND GROUP AND INTERACTIVE WITH STAFF AND OTHER PATIENTS. R: INEFFECTIVE. PATEINT INTERACTIVE WITH STAFF, COMES TO DINING ROOM FOR MEAL. PATIENT IS ALERT TO PERSON, PLACE, TIME AND SITUATION. MOOD IS DEPRESSED. DENIES ANY HALLUCINATIONS, DELUSIONS, HI/SI OR PAIN. MEDICATION COMPLIANT WITH EDUCATION PROVIDED. Q 15 MINUTE SAFETY CHECKS. AMBULATORY WITH STEADY GAIT. SET UP WITH ACTIVITIES OF DAILY LIVING, CONTINENT OF BOWEL AND BLADDER. SET UP FOR MEALS, INTAKES ARE GOOD WITH ADEQUATE FLUIDS. P: CONTINUE TO MONITOR FOR HALLUCINATIONS, HEARING MUSIC OR VOICED THOUGHTS TO STARVE SELF. PROVIDE ONE ON ONE FOR EMOTIONAL SUPPORT, REDIRECTION/ORIENTATION PROVIDED.
[2020-05-01 20:00] VITALS: BP 128/64
--- NOTE | 2020-05-02 06:07 | NUR ---
PATIENT SLEPT APPROX 8 HOURS THIS SHIFT UNINTERRUPTED. NO DISTRESS NOTED.
--- NOTE | 2020-05-02 06:33 | NUR ---
24 HOUR CHART CHECK COMPLETED.
--- NOTE | 2020-05-02 07:05 | NUR ---
PHYSICAL THERAPY Patient seen this am for therapy visit and was in her bathroom with OT assistant professor of german upon therapist arrival. Patient identified by name / and was very pleasant this morning, voicing no new c/o's at this time. Patient ambulates without assitive device, ad arnaud in hallway, > 250'x 1, Supervision, while demonstrating slow, steady gait pattern and no LOB. Patient able to perform 180 / 360 degree turn arounds SBA, without LOB and returned to activity room chair at table with mild fatigue. Patient remained at table under [facility] staff Supervision and will continue per POC as tolerated, total treatment time 16 minutes. Eulogio Foreman, SUPERVISOR GLYCERIN
--- NOTE | 2020-05-02 07:20 | NUR ---
OT NOTE Prior to arrival therapist called [facility] and talked to nurse Vargas to get permission to treat pt. Pt was laying supine in bed agreeable to 25 minute OT session Pt identified by name and date of with no complaints. Nursing staff and TICKET WORKER were present for observation only. Transfer supine to EOB distant supervision. Pt was able to dileep socks at EOB with distant supervision. Sitting balance good-. Functional mobility from EOB to bathroom SBA. Pt was able to dileep street clothes (shirt and jeans) both at distant supervision. Pt stood unsupported sink side for grooming at distant supervision. Stand balance good-. Functional mobility from bathroom to hallway window SBA. Stand balance good-. Functional mobility from hallway window to dining romero SBA. Pt was left in chair in dining romero with [facility] aide present. Continue d/c recommended home. AFSHAN Hauser/LAKE Marte/Shelby
[2020-05-02 07:27] VITALS: BP 116/61
--- NOTE | 2020-05-02 08:30 | NUR ---
Treatment Plan meeting was held this a.m. [facility] RUSSEL Lester, RN, AT, BRAIDING MACHINE TENDER-S and Equipment Cleaner. Plan for discharge Tuesday. Pt. will return home at discharge.
--- NOTE | 2020-05-02 09:06 | NUR ---
DR. SPICER ON UNIT TO ASSESS PATIENT.
--- NOTE | 2020-05-02 11:39 | NUR ---
AM GROUP PT DID NOT ATTEND MORNING GROUP THERAPY. PT WAS IN BED RESTING.
--- NOTE | 2020-05-02 13:21 | NUR ---
OCCUPATIONAL THERAPY CO-SIGN I approve of the Occupational Therapy notes written above. PRASANNA CALHOUN, OTR/L
--- NOTE | 2020-05-02 14:15 | NUR ---
P: PT ISOLATIVE TO ROOM THROUGHOUT THE DAY, WILL SIT IN THE CHAIR OR LAY IN BED, ONLY COMING OUT FOR MEALS. PT REFUSES TO PARTICIPATE IN GROUPS OR ACTIVITIES. I: PROVIDE EMOTIONAL SUPPORT AND 1:1 FOR PT TO VOICE FEELINGS, ENCOURAGE MED COMPLIANCE AND PROVIDE MED EDUCATION, ENCOURAGE GROUP PARTICIPATION AND SOCIALZIATION R: PT ALERT TO PERSON, PLACE, TIME AND SITUATION. PT MED COMPLIANT WITHOUT DIFFICULTY, MED EDUCATION PROVIDED. PT CALM. PT CONTINUES TO ISOLATE TO HER ROOM, ONLY COMING OUT FOR MEALS WITH ENCOURAGEMENT. NO HALLUCINATIONS OR DELUSIONS NOTED AT THIS TIME. PT DENIES ANY SUICIDAL THOUGHTS. PT AMBULATORY THROUHGUOT UNIT, GAIT STEADY. PT CONTINENT OF BOWEL AND BLADDER, EPISODES OF INCONTINENCE NOTED, CARE PROVIDED NEEDED. P: MONITOR PT BEHAVIORS ON Q15 MIN SAFETY CHECKS, ENCOURAGE MED COMPLIANCE AND PROVIDE MED EDUCATION, ENCOURAGE GROUP PARTICIPATION AND SOCIALIZATION, PROVIDE EMOTIONAL SUPPORT AND 1:1 FOR PT TO VOICE FEELINGS.
--- NOTE | 2020-05-02 15:37 | NUR ---
PM GROUP PT DID NOT ATTEND AFTERNOON GROUP THERAPY. PT CHOOSES TO STAY IN HER ROOM
[2020-05-02 19:59] VITALS: BP 121/57
--- NOTE | 2020-05-02 22:49 | NUR ---
Patient alert and oriented x 4 with slight confusion at times. Mood is calm,cooperative but isolative to self. Patient in diningroom with other patients but isolative to self. Patient denies any SI/HI or hallucinations. No overt s/s of any responding to internal stimuli noted at this time. Patient compliant with HS medications without any difficulty. Provided 1:1 for emotional support. Redirected/reoriented when needed. Plan to continue to encourage medication compliance and encourage more interaction with other patients. Also continue to provide emotional support and redirect/reoriented when needed/appropriate. Also continue to monitor moods/behaviors. Q 15 minute safety checks continued and maintained. See [facility] flowsheet for further documentation.
--- NOTE | 2020-05-03 05:24 | NUR ---
Patient slept approx. 5.5 hours throughout shift with a few awakenings. Q 15 minute safety checks continued and maintained.
[2020-05-03 07:51] VITALS: BP 116/60
--- NOTE | 2020-05-03 08:58 | NUR ---
DR SPICER ON UNIT TO ASSESS PT, UPDATE PROVIDED.
--- NOTE | 2020-05-03 13:24 | NUR ---
NO ADVERSE MOODS OR BEHAVIORS NOTED. PT ALERT TO PERSON, PLACE, TIME AND SITUATION, PERIODS OF INTERMITTENT CONFUSION NOTED. PT MED COMPLIANT WITHOUT DIFFICULTY, MED EDUCATION PROVIDED. PT CALM, MOOD IS STABLE. PT OBSERVED TO BE TALKING TO UNSEEN OTHERS AT TIMES, BEHAVIOR APPEARS TO BE BASELINE. PT DENIES ANY SUICIDAL THOUGHTS. PT PARTICIPARTED IN MORNING GROUP OF COLORING PUMPKINS AND LEAVES. PT AMBULAOTRY THROUHGOUT UNIT, GAIT STEADY. PT CONTINENT OF BOWEL AND BLADDER, EPISODES OF INCONTINENCE NOTED, CARE PROVIDED NEEDED. PLAN IS TO MONITOR PT BEHAVIORS ON Q15 MIN SAFETY CHECKS, ENCOURAGE MED COMPLIANCE AND PROVIDE MED EDUCATION, PROVIDE EMOTIONAL SUPPORT AND 1:1 FOR PT TO VOICE FEELINGS, ENCOURAGE GROUP PARTICIPATION AND SOCIALZIATION.
[2020-05-03 20:00] VITALS: BP 129/62
--- NOTE | 2020-05-03 21:00 | NUR ---
EATING SNACK. HAS BEEN ISOLATIVE TO ROOM. MEDICATION COMPLIANT. STATES SHE SLEPT ALL DAY AFTER TAKING A SHOWER AND GETTING COLD. SHE STATES SHE USUALLY SLEEPS ALL DAY AND IS UP AT NIGHT. DECLINED ANY FURTHER CONVERSATION AND RETURNED TO HER ROOM
--- NOTE | 2020-05-03 21:10 | NUR ---
WALKING IN JOLLY ENCOURAGED CLIENT TO USE RAILS ON WALL OR ALLOW STAFF TO ASSIST. WILL CONTINUE TO MONITOR FOR CHANGES IN MOOD/BEHAVIOR AND Q 15 MINS AND PRN FOR SAFETY
--- NOTE | 2020-05-04 05:25 | NUR ---
24 HR chart check completed.
--- NOTE | 2020-05-04 05:25 | NUR ---
24 HR chart check completed.
--- NOTE | 2020-05-04 06:18 | NUR ---
SLEPT WELL PAST 2215PM. UP A FEW TIMES TO VOID. MOVES SELF WELL IN BED.
[2020-05-04 07:45] VITALS: BP 129/79
--- NOTE | 2020-05-04 12:54 | NUR ---
PT IS ALERT AND ORIENTED WITH PERIODS OF CONFUSION. STABLE MOOD. QUIET AND WITHDRAWN TO HERSELF. ISOLATIVE TO HER ROOM WITH THE EXCEPTION OF MEALS. INTERACTIVE WITH STAFF WHEN APPROACHED. DENIES SI/HI. PT ALSO DENIES HALLUCINATIONS AND DELUSIONS. MEDICATION COMPLIANT WITHOUT DIFFICULTY. 1:1 PROVIDED FOR THERAPEUTIC COMMUNICATION. PT STATED THERE WAS NOTHING SHE WANTED TO TALK ABOUT. WILL CONTINUE TO OFFER 1:1 FOR THERAPEUTIC COMMUNICATION. BEHAVIORS MONITORED WITH Q15 MINUTE SAFETY CHECKS. SEE [facility] FLOWSHEET FOR SPECIFIC MONITORING.
[2020-05-04 20:00] VITALS: BP 112/67
--- NOTE | 2020-05-04 20:58 | NUR ---
ISOLATIVE TO ROOM BUT DID COME FOR SNACK WITH ENCOURAGEMENT. ATE WELL. GAIT STEADY. EXCITED ABOUT GOING HOME TOMORROW. WILL MONITOR FOR CHANGES IN MOOD/BEHAVIOR AND Q 15MINS AND PRN FOR SAFETY
--- NOTE | 2020-05-05 02:33 | NUR ---
24 HR chart check completed.
--- NOTE | 2020-05-05 06:09 | NUR ---
SLEPT WELL PAST 2215PM
--- NOTE | 2020-05-05 07:00 | NUR ---
PHYSICAL THERAPY Patient seen this am for therapy visit and was sitting up on EOB upon therapist arrival. Patient identified by name / and reports no new c/o's at this time. OT human resources benefits assistant was present this morning for observation as patient transfers sit to stand with Supervision. Patient was pleasant, ambulating ad arnaud in hallway, > 200'x 1, no AD and demonstrated no LOB this session with all standing activities. Patient able to side step at rail, high knee marching and backward walk, 15'x 2 for each without c/o and returned to quiet room following treatment. Patient remained in chair under [facility] staff Supervision and will continue per POC as tolerated. Total treatment time 17 minutes. Eulogio Foreman, CALL CENTER CONSULTANT
--- NOTE | 2020-05-05 07:10 | NUR ---
OT NOTE Prior to session therapist called [facility] and talked to nurse Verito kiser to treat pt. Pt was in bathroom on commode agreeable to 16 minute OT session. Pt identified by name and date of with no complaints. STITCH WHEELER and nursing present for observation only. I for toilet transfers. I for upper/lower body dressing. I for grooming at sink side. balance good-. Functional mobility from bathroom to hallway I. Pt completed BUE exercises in quite room with towel at moderate resistance in all planes X10. Functional mobility from Quite room to bedroom I. Pt left in bedroom, [facility] staff notified. Continue d/c recommended home. AFSHAN Hauser/LAKE Marte/Shelby
[2020-05-05 07:51] VITALS: BP 122/49
[2020-05-05] MEDS ORDERED: CLONAZEPAM0.5 M2 PO (09:00)
[2020-05-05] MEDS ORDERED: RISPERIDONE1 MG PO (09:00)
[2020-05-05] MEDS ORDERED: BENZTROPINE ME0.5 MG PO (09:00)
[2020-05-05] MEDS ORDERED: MIRTAZAPINE15 M2 PO (09:00)
[2020-05-05] MEDS ORDERED: RISPERIDONE2 M2 PO (09:00)
--- NOTE | 2020-05-05 11:18 | NUR ---
Treatment team meeting held this AM with Dr Cox, Tayler Enriquez BREAD WRAPPER OPERATOR, retail pricing coordinator, and DIANNE. Pt is discharging today returning home. Follow-up scheduled with Dr Espitia at [facility].
--- NOTE | 2020-05-05 11:25 | NUR ---
Met with pt this AM. Pt reports that she is feeling much better and that she is no longer hearing things. Discussed pt's discharge. Pt states that she feels ready to return home. Discussed follow-up and educated pt on the importance of being connected with a mental health provider. Pt voiced understanding. Pt was pleasant, cooperative, and appropriate in conversation.
--- NOTE | 2020-05-05 13:43 | NUR ---
Discharge information faxed to [facility] for follow up with Maday Damon and to [facility] for follow up with Dr. Espitia.
--- NOTE | 2020-05-05 14:07 | NUR ---
Pt is discharging to her home today. Follow-up was scheduled with Dr Espitia at [facility] on 05/29/20 at 13:30 and with Maday Damon NP on 05/21/20 at 12:30. While at [facility], pt's auditory hallucinations resolved. By discharge, pt denies any hallucinations or delusional thoughts. Pt tended to isolate during her [facility] admittance but would participate at times.
--- NOTE | 2020-05-05 15:52 | NUR ---
PM GROUP/LEISURE INTERESTS PT DID NOT ATTEND AFTERNOON GROUP THERAPY. PT IS READYING TO BE DISCHARGED FROM THE UNIT.
--- NOTE | 2020-05-06 07:24 | NUR ---
OCCUPATIONAL THERAPY CO-SIGN I approve of the Occupational Therapy notes written above. PRASANNA CALHOUN, OTR/L
--- NOTE | 2020-05-06 07:46 | NUR ---
PHYSICAL THERAPY CO-SIGN I approve of the Physical Therapy notes written above. Marixa Gonzalez PT
--- NOTE | 2020-05-06 10:34 | NUR ---
Nataliia POST and myself were unable to locate patients post discharge follow up form. It was not on the chart per instructions left for me.
== END 2020-05-05 16:01 | disposition home or self-care (01) | DRG 885 ==
LOC: 3N 23:30
PROVIDERS: Counselor Professional; ADMIT Psychiatry & Neurology Psychiatry; ATTEND Psychiatry & Neurology Psychiatry
DX: F33.3 Major depressive disorder, recurrent, severe with psychotic symptoms (principal); N17.0 Acute kidney failure with tubular necrosis; N18.3 Chronic kidney disease, stage 3 (moderate); D64.9 Anemia, unspecified; D72.810 Lymphocytopenia; R73.9 Hyperglycemia, unspecified; K21.9 Gastro-esophageal reflux disease without esophagitis; Z20.828 Contact with and (suspected) exposure to other viral communicable diseases; I12.9 Hypertensive chronic kidney disease with stage 1 through stage 4 chronic kidney disease, or unspecified chronic kidney disease; M89.49 Other hypertrophic osteoarthropathy, multiple sites; Z88.5 Allergy status to narcotic agent